=== PATIENT | male | born 1965 | race Caucasian/White ===

== ENCOUNTER 2021-07-05 12:29 | Outpatient (CLI) | payer OTHER | END 2021-07-05 12:30 | disposition home or self-care (01) | LOC: ULT 12:29 | PROVIDERS: ATTEND Psychiatry & Neurology Neurology | DX: G45.3 Amaurosis fugax (principal); I08.3 Combined rheumatic disorders of mitral, aortic and tricuspid valves; I65.23 Occlusion and stenosis of bilateral carotid arteries | CPT/HCPCS: 93306; 93880 ==